=== PATIENT | male | born 1970 | race Two or more races ===

== ENCOUNTER 2019-03-15 00:17 | Emergency (ER) | payer OTHER ==
[~2019-03-15] VITALS: Ht 165.1 cm; Wt 73.0 kg
[2019-03-15] MEDS ORDERED: KETO10TA2 PO ×2 (04:37)
[2019-03-15] MEDS ORDERED: ORPHENADRINE C100 MG PO ×2 (04:37)
== END 2019-03-15 04:48 | disposition home or self-care (01) ==
LOC: ER 00:17
DX: M79.652 Pain in left thigh (principal)